=== PATIENT | female | born 1940 | race Caucasian/White ===

== ENCOUNTER 2017-05-05 14:19 | Outpatient (CLI) | payer MEDICARE, OTHER ==
--- NOTE | 2017-05-10 10:38 | OP Clinic Progress Note ---
REASON FOR VISIT: Babs is seen. This a 77-year-old lady who is accompanied by her . She has had persistent hearing loss after an otitis media. She has taken a course of antibiotics and used ear drops. The patient would like to have a tube placed in both ears. After carefully looking into the ears with a microscope, she still has a film of dried otic drop residue. It is a fairly thick residue. It is also fairly firmly attached to the eardrums. At least 2 points here, some of this residue may be the cause of some of the persistent hearing loss and I really cannot make a solid judgement as to the quantity or the thickness of the middle ear fluid. Additionally, it is almost impossible to put a tube in there when there is a fairly thick residue on the eardrum. It is also fairly firmly attached. PLAN: I did explain to the patient that we ought to wait a short period of time. In the interval, I will have her use alcohol rubbing drops, isopropyl 91% drops, 2 to 3 drops in both ears at least 3 times a day to begin rinsing and cleaning the residue on the eardrum. I will see her next week. If enough of that is off and there still appears to be middle ear fluid, I will go ahead and put tubes in both ears. I would comment that the right ear canal is fairly narrow making it a little difficult to put it in the anterior aspect of the eardrum but I will be better able to assess that when the eardrums clearer after the alcohol rinses of the ear canals. Both patient and her , I believe, have a pretty good understanding of this. I went over the instructions very carefully. I will see her back next week. cc: Dr. Bernard RODRIGUEZ
== END 2017-05-05 14:20 ==
LOC: ENT 14:19
PROVIDERS: ATTEND Otolaryngology
DX: H66.93 Otitis media, unspecified, bilateral (principal)
CPT/HCPCS: G0463

== ENCOUNTER 2017-05-12 12:05 | Outpatient (CLI) | payer MEDICARE, OTHER ==
--- NOTE | 2017-05-13 11:21 | OP Clinic Progress Note ---
REASON FOR VISIT: This 69-year-old lady is seen in follow up on her otitis externa, more of the right ear. On the prior visit, it was difficult to tell whether she had otitis externa or middle ear fluid. Using the drops in the ear and after the cleaning , she has improved hearing. On microscopic cleaning of the ear today, again, she still has a hard scab in the right ear that is partially lifted up off the eardrum and that is why she hears better. That portion of the eardrum that I see is clear enough that I do not think that she really has middle ear fluid. Mostly, it has been an otitis externa. PLAN: Today, I removed additional hard scabs off the eardrum. Some of them are thick enough that I have placed an antibiotic ointment on the hard necrotic exudates in the right ear canal. She will wait about a week and then resume putting the alcohol drops in the ear, and I will see her back in about a month. cc: Dr. Bernard RODRIGUEZ
== END 2017-05-12 12:06 ==
LOC: ENT 12:05
PROVIDERS: ATTEND Otolaryngology
DX: H60.91 Unspecified otitis externa, right ear (principal)
CPT/HCPCS: G0463

== ENCOUNTER 2017-06-09 14:20 | Outpatient (CLI) | payer MEDICARE, OTHER ==
--- NOTE | 2017-06-10 10:43 | OP Clinic Progress Note ---
REASON FOR VISIT: Babs is seen in follow up of trying to improve a right-sided otitis externa with hard, crusty yellow and white scabs on the eardrum. I put ointment in the ear about a month ago to soften this, as those scabs are really rock hard. Today, they are much softer and they have lifted off the eardrum at least moderately. She was able to tolerate micro-debridement and cleaning under the microscope here in the clinic. The eardrum has no hole or perforation. There is no erythema. There is no fluid behind the eardrum. After cleaning the ear, essentially, the right ear has normal otoscopy. The left ear is in about the same condition as we started with in the right ear with hard, crusty, scabby, and white and yellow scabs attached to the eardrum. PLAN: Under the microscope, I placed antibiotic ointment over this to soften this. She will return in about a month and hopefully, I will be able to debride and clean the left ear canal as I did in the right ear. As I do not have an audiogram, I really cannot comment on the degree of hearing loss that she has. I discussed getting an audiogram after the left ear is clear and clean of disease. The patient's accompanied her. cc: Dr. Bernard RODRIGUEZ
== END 2017-06-09 14:21 ==
LOC: ENT 14:20
PROVIDERS: ATTEND Otolaryngology
DX: H60.91 Unspecified otitis externa, right ear (principal); H91.93 Unspecified hearing loss, bilateral
CPT/HCPCS: 69210; G0463